=== PATIENT | female | born 1960 | race American Indian/Alaskan Native ===

== ENCOUNTER 2020-01-16 16:04 | Outpatient (CLI) | payer OTHER ==
--- NOTE | 2020-01-16 16:42 | XRay Report ---
XR hand 3+V RT INDICATION / CLINICAL INFORMATION: THUMB PAIN RIGHT. COMPARISON: None available. FINDINGS: BONES/JOINT(S): No acute fracture or subluxation. 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 SOFT TISSUES: No significant abnormality. ADDITIONAL FINDINGS: None. Signer Name: Kishore Schwarz MD Signed: 01/16/2020 4:38 PM Workstation Name: [id number]
--- NOTE | 2020-01-16 16:42 | XRay Report ---
XR wrist 3+V RT INDICATION / CLINICAL INFORMATION: THUMB PAIN, RIGHT. COMPARISON: None available. FINDINGS: BONES/JOINT(S): No acute fracture or subluxation. Mild DJD in the thumb CMC joint and the interphalan geal joints. No focal bone lesions. SOFT TISSUES: No significant abnormality. ADDITIONAL FINDINGS: None. Signer Name: Kishore Schwarz MD Signed: 01/16/2020 4:37 PM Workstation Name: [id number]
== END 2020-01-16 16:05 | disposition home or self-care (01) ==
LOC: SPVIMAG 16:04
PROVIDERS: ATTEND Internal Medicine
DX: M19.031 Primary osteoarthritis, right wrist (principal); M79.644 Pain in right finger(s)